=== PATIENT | male | born 1955 | race Caucasian/White ===

== ENCOUNTER 2021-01-19 20:38 | Emergency (ER) | payer OTHER, SELFPAY ==
[2021-01-19 20:50] VITALS: BP 163/70; PULSE 89; RESP 16; TEMP 35.9; O2SAT 98
--- NOTE | 2021-01-19 21:24 | ED.GENADUL_ITS ---
Discharge Plan Disposition Patient Disposition: HOME Condition: Good Discharge Details Chief Complaint: Laceration Clinical Impression: Laceration of toe of left foot, Encounter for laboratory testing for COVID-19 virus, Lab test negative for COVID-19 virus Primary Care Provider: Unknown,Unknown ED Provider: Aristeo Cano Home Meds and New Rx's Prescriptions: No Action No Known Home Meds RF: 0 Discharge Instructions Instructions: Care For Your Stitches (ED), Laceration (ED) Additional Instructions: Please leave the dressing on for 48 hours, then you may remove and begin cleaning the wound at least twice a day with soap and water. Continue to apply antibiotic ointment. Do not directly soak the area. Watch for any signs of infection and return if any increasing redness, swelling, pain, drainage. The sutures can be removed in 7 to 10 days. If you notice any worsening of your symptoms, or any new symptoms such as vomiting, diarrhea, fever, chills, shortness of breath, chest pain, numbness, weakness, or fainting , please return immediately to the emergency department for reevaluation. Please follow up with your primary care provider as soon as possible for reassessment and reevaluation. As always, it was a pleasure participating in your medical care today. Medical Decision Making 65-year-old male with no significant past medical history presents today for laceration to his left great toe. Patient was walking in flip-flops after the [employer] meeting [facility]. Unfortunately he slipped and cut the plantar surface of the MTP joint. Tetanus is not up-to-date. He denies any numbness or tingling. Pain is made worse with movement. He is not on blood thinners. No other complaints at this time. Exam demonstrates a 2 cm laceration to the plantar aspect of the great toe on the left foot at the MCP joint, it travels in a crescent shape from superficial to deeper. No evidence of tendon or bony involvement whatsoever. Area was cleaned, anesthetized, and then sutured with simple interrupted sutures. Patient tolerated this well. Tetanus was updated. No indication for imaging at this time as there is no evidence of foreign body on inspection. Of note patient has been traveling and has requested Covid testing. We will get this on his behalf. Discussed red flags which to return as well as proper wound care. I have extensively reviewed the treatment plan and discharge instructions with the patient. I have addressed all patient concerns at this time. The patient was made aware of what symptoms to monitor for that would warrant a return to the emergency department. Discussed the plan with the patient, they demonstrate verbal understanding and agreement with our assessment and plan at this time. The documentation in this chart was dictated using [employer] dictation software. Please excuse any dictation errors. HPI General Date/Time Provider Initiated Documentation: 01/19/21 20:41 . HPI Narrative: 65-year-old male with no significant past medical history presents today for laceration to his left great toe. Patient was walking in flip-flops after the [employer] meeting in [facility]. Unfortunately he slipped and cut the plantar surface of the MTP joint. Tetanus is not up-to-date. He denies any numbness or tingling. Pain is made worse with movement. He is not on blood thinners. No other complaints at this time. Related Data Home Medications Medication Instructions Recorded Confirmed Unknown [No Known Home Meds] 01/19/21 01/19/21 Allergies Allergy/AdvReac Type Severity Reaction Status Date / Time No Known Allergies Allergy Unverified 01/19/21 20:53 General Stated Complaint: Laceration HAYLEE: 4 Review of Systems All systems reviewed & are unremarkable except as noted in HPI and below [facility] Social History Smoking/Tobacco Use Status: Never Smoking risk assessment performed?: Yes Substance use type: does not use Exam Narrative Exam Narrative: 1.Const: Well-nourished, Well-developed, appearing stated age 2.Eyes: PERRL, no conjunctival injection, and symmetrical lids. 3.ENT: Atraumatic external nose and ears. Moist MM. Neck: Symmetric, trachea midline, No thyromegaly. 4.CVS: +S1/S2, No murmurs or gallops. Peripheral pulses 2+ and equal in all extremities. Brisk capillary refill in all extremities. 5.RESP: Unlabored respiratory effort. Clear to auscultation bilaterally. No wheezes rales or rhonchi 6.GI: Soft, Nontender/Nondistended, No hepatosplenomegaly. No guarding or rebound. 7.MSK: Normocephalic/Atraumatic, Extremities w/o deformity or ttp No cyanosis or clubbing, Normal movement of all extremities, please see skin 8.Skin: Patient's left great toe on the plantar aspect demonstrates a crescent- shaped 2 cm laceration which travels at a superficial to deep angle distally towards the toe. No evidence of tendon involvement. No evidence of active bl eeding. Patient demonstrates excellent flexion and extension of the toe, good sensation, no deficits. 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 Sensation grossly intact, no focal neurologic deficits. 10.Psych: (AAO) x3. Appropriate mood and affect Course Vital Signs Vital signs: Vital Signs Temperature 35.9 C L 01/19/21 20:50 Pulse 89 01/19/21 20:50 Respiratory Rate 16 01/19/21 20:50 Blood Pressure 163/70 H 01/19/21 20:50 Pulse Oximetry 98 01/19/21 20:50 Temperature 35.9 C L 01/19/21 20:50 Pulse 89 01/19/21 20:50 Respiratory Rate 16 01/19/21 20:50 Respiratory Effort Non-Labored 01/19/21 20:50 Blood Pressure 163/70 H 01/19/21 20:50 Blood Pressure Position Sitting 01/19/21 20:50 Pulse Oximetry 98 01/19/21 20:50 Oxygen Delivery Method Room Air 01/19/21 20:50 Oxygen Flow Rate 0 01/19/21 20:50 Pain Level 1 01/19/21 20:50 Procedures Laceration Laceration 1: Site: lower extremity Side (If applicable): left Size (cm): 2 Description: other (crescent) Depth: simple, single layer Local Anesthetic: Lidocaine 1% Amount of anesthesia used (mL): 3 Pre-repair: wound explored, irrigated extensively and deep structures intact Skin layer closed with: nylon Size (cm): 4-0 Number of sutures: 6 Technique: simple, interrupted
[2021-01-19 21:37] LABS: Source Nasal/Nares
[2021-01-19 22:28] LABS: COVID-19 PCR Negative (Negative)
== END 2021-01-19 21:55 | disposition home or self-care (01) ==
PROVIDERS: Emergency Provider Student in an Organized Health Care Education/Training Program
DX: S91.112A Laceration without foreign body of left great toe without damage to nail, initial encounter (principal); W26.8XXA Contact with other sharp object(s), not elsewhere classified, initial encounter; Z20.822 Contact with and (suspected) exposure to COVID-19; Z03.818 Encounter for observation for suspected exposure to other biological agents ruled out
CPT/HCPCS: 12001; 87635; 90471